=== PATIENT | female | born 1985 | race Caucasian/White ===

== ENCOUNTER 2023-08-17 11:32 | Outpatient (CLI) | payer OTHER, SELFPAY ==
[2023-08-17 11:51] LABS: Basophils Absolute Auto 0.06 K/mm3 (0.00-0.10); Basophils Percent Auto 0.8 % (0.0-1.0); Eosinophils Absolute Auto 0.47 K/mm3 (0.02-0.50); Hematocrit 41.6 % (35.0-49.0); Hemoglobin 14.4 g/dL (12.0-15.0); Immature Granulocyte Absolute 0.02 K/mm3 (0.00-0.00); Immature Granulocyte Percent A 0.3 % (0.0-0.0); Lymphocytes Absolute Auto 2.63 K/mm3 (1.10-4.50); Lymphocytes Percent Auto 33.5 % (18.0-42.0); Mean Corpuscular HGB Conc 34.6 g/dL (32.0-36.0); Mean Corpuscular Volume 89.7 fL (78.0-102.0); Mean Platelet Volume 9.7 fl (9.2-11.8); Monocytes Absolute Auto 0.33 K/mm3 (0.10-0.90); Monocytes Percent Auto 4.2 % (2.0-11.0); Neutrophils Absolute Auto 4.3 K/mm3 (1.7-7.2); Neutrophils Percent Auto 55.2 % (50.0-70.0); Platelet Count Result 252 K/mm3 (150-420); Red Blood Count 4.64 M/mm3 (4.20-5.40); Red Cell Distribution Width 12.1 % (11.6-14.4); White Blood Count 7.8 K/mm3 (4.8-10.8)
[2023-08-17 13:04] LABS: Alanine Aminotransferase 24 U/L (14-59); Albumin Level 3.8 g/dL (3.4-5.0); Alkaline Phosphatase 56 U/L (46-116); Anion Gap 9 mmol/L (8-16); Aspartate Amino Transferase 18 U/L (15-37); Bilirubin,Total 0.4 mg/dL (0.00-1.00); Blood Urea Nitrogen 5 mg/dL (7-18); Calcium 8.6 mg/dL (8.5-10.1); Carbon Dioxide 30 mmol/L (21-32); Chloride 102 mmol/L (98-108); Estimated Glomerular Filt Rate > 60; Free T4 Free Thyroxine 0.89 ng/dL (0.76-1.46); Glucose 95 mg/dL (70-99); Iron 84 ug/dL (50-170); Osmolality Calculated 289 mOsm/kg (285-295); Percent Iron Saturation 28 % (12-57); Potassium 4.4 mmol/L (3.5-5.1); Sodium 141 mmol/L (136-145); Thyroid Stimulating Hormone 1.92 uIU/mL (0.36-3.74); Total Protein 6.8 g/dL (6.4-8.2); Vitamin B12 578 pg/mL (193-986)
[2023-08-17 13:21] LABS: Beta HCG Quantitative < 1.00 mIU/mL (0-6)
[2023-08-20 13:14] LABS: Vitamin D 25 Hydroxy 35 ng/mL (30-100)
[2023-08-21 07:48] LABS: Total Triiodothyronine (T3) 94.5 ng/dL (76-181)
== END 2023-08-17 11:33 | disposition home or self-care (01) ==
LOC: CHSLAB 11:34
PROVIDERS: PCP Nurse Practitioner Family; Visit Provider Nurse Practitioner Family
DX: R11.0 Nausea (principal); I10 Essential (primary) hypertension; D50.9 Iron deficiency anemia, unspecified; E53.8 Deficiency of other specified B group vitamins; E03.9 Hypothyroidism, unspecified; Z79.899 Other long term (current) drug therapy
CPT/HCPCS: 36415; 80053; 82306; 82607; 83540; 83550; 84439; 84443; 84480; 84702; 85025

== ENCOUNTER 2024-06-10 07:40 | Outpatient (CLI) | payer OTHER, SELFPAY ==
--- NOTE | ~2024-06-10 | MR_ITS ---
EXAMINATION: MR brain/brain stem wo con DATE: 06/10/2024 08:26 INDICATION: Seizure activity with loss of consciousness 4 weeks prior TECHNIQUE: Magnetic resonance imaging (MRI) of the brain and brainstem was performed without intraven ous contrast. Sequences included sagittal and axial T1-weighted SE, axial diffusion-weighted FS SE, a xial T2*-weighted GRE, axial T2-weighted FLAIR Propeller, axial T2-weighted Propeller, coronal T2-nichole ghted FLAIR, and coronal T1-weighted 3D FSPGR. Apparent diffusion coefficient (ADC) maps were created . . COMPARISON: None. FINDINGS: There are no areas of restricted diffusion to suggest acute infarction. No intracranial hemorrhage or abnormal intracranial mass lesion. There are 7 scattered foci of nonspecific increased T2-weighted s ignal intensity in the bilateral frontal lobe cerebral white matter, 3 on the right and 4 on the left including a significantly larger lesion along the anterior horn of the left lateral ventricle. There are no intraparenchymal signal abnormalities seen on the other pulse sequences. Bilateral hippocampi appear normal and symmetric. No evident sinclair matter heterotopias or other developmental neuronal luis rational abnormalities. The ventricles are symmetric and normal in size. There are no abnormal extra- axial fluid collections. Flow voids are seen in the cerebral arteries on the T2-weighted sequences co nsistent with their expected patency. Visualized orbits and soft tissues are unremarkable. There is p rominent mucosal thickening the bilateral maxillary sinuses with additional mild mucosal thickening i n the left frontal sinus and moderate mucosal thickening the bilateral ethmoid sinuses. IMPRESSION: 1. 7 scattered foci of nonspecific white matter T2 hyperintensity which are more numerous than expect ed for age with a significantly larger lesion also atypical for age along the anterior horn of the le ft lateral ventricle. This raises some suspicion for demyelinating disease such as multiple sclerosis . The differential diagnosis would also include premature chronic small vessel ischemic disease (marciano cially if the patient has cardiovascular risk factors), drug abuse, vasculitis, or reactive astrocyto sis (gliosis) secondary to nonspecific etiology. 3. Prominent sinus disease. Reviewed, dictated and finalized at location A. STRATE JUDGE IMPRESSION: 1. 7 scattered foci of nonspecific white matter T2 hyperintensity which are mor e numerous than expected for age with a significantly larger lesion also atypic al for age along the anterior horn of the left lateral ventricle. This raises s ome suspicion for demyelinating disease such as multiple sclerosis. The differe ntial diagnosis would also include premature chronic small vessel ischemic dise ase (especially if the patient has cardiovascular risk factors), drug abuse, va sculitis, or reactive astrocytosis (gliosis) secondary to nonspecific etiology. 3. Prominent sinus disease.
== END 2024-06-10 07:41 | disposition home or self-care (01) ==
LOC: CHSIMG 07:46
PROVIDERS: PCP Nurse Practitioner Family; Visit Provider Nurse Practitioner Family
DX: R56.9 Unspecified convulsions (principal); R93.0 Abnormal findings on diagnostic imaging of skull and head, not elsewhere classified
CPT/HCPCS: 70551

== ENCOUNTER 2024-09-21 11:35 | Outpatient (CLI) | payer OTHER, SELFPAY ==
[2024-09-21 11:47] LABS: Basophils Absolute Auto 0.07 K/mm3 (0.00-0.10); Basophils Percent Auto 0.7 % (0.0-1.0); Eosinophils Absolute Auto 0.56 K/mm3 (0.02-0.50); Eosinophils Percent Auto 5.5 % (1.0-6.0); Hematocrit 43.2 % (35.0-49.0); Immature Granulocyte Absolute 0.02 K/mm3 (0.00-0.00); Immature Granulocyte Percent A 0.2 % (0.0-0.0); Lymphocytes Absolute Auto 2.53 K/mm3 (1.10-4.50); Mean Corpuscular HGB Conc 34.7 g/dL (32-36); Mean Corpuscular Hemoglobin 30.8 pg (27.0-31.0); Mean Corpuscular Volume 88.7 fL (78.0-102.0); Mean Platelet Volume 8.9 fl (9.2-11.8); Monocytes Absolute Auto 0.54 K/mm3 (0.10-0.90); Monocytes Percent Auto 5.3 % (2.0-11.0); Neutrophils Absolute Auto 6.42 K/mm3 (1.70-7.20); Neutrophils Percent Auto 63.3 % (50.0-70.0); Platelet Count Result 274 K/mm3 (150-420); Red Blood Count 4.87 M/mm3 (4.20-5.40); Red Cell Distribution Width 12.4 % (11.6-14.4); White Blood Count 10.1 K/mm3 (4.8-10.8)
[2024-09-21 12:19] LABS: Hemoglobin A1C 6.3 % (<5.7)
--- OUTSIDE RECORDS SUMMARY | 2024-09-21 12:24 | XMS_ITS | Continuity of Care Document ---
Author Organization [facility] Address [address] [place] [address] Phone Care Team Providers Care Panelboard Operator Name Role Phone Adalid Madrigal MD Unavailable Unavaila ble Allergies, Adverse Reactions, Alerts Substance Reaction Status Criticality carbamazepine Active No Information acetazolamide Active No Information Sulfa (Sulfonamide Antibiotics) rash, hives, vomiting Active No Information Medications Medication Instructions Dosage Effective Dates (start - stop) Status Comments tramadol 50 mg tablet take 1 tablet by oral route 3 times every day 50 MG - Active gabapentin 300 mg capsule take 1 capsule by oral route 3 times every day 300 MG - Active tizanidine 4 mg tablet take 1 tablet by oral route every 3 hours as needed not to exceed 3 doses in 24 hours 4 MG - Active levothyroxine 112 mcg tablet take 1 tablet by oral route every day 112 MCG - Active atorvastatin 40 mg tablet take 1 tablet by oral route every day 40 MG - Active esomeprazole magnesium 40 mg capsule,delayed release take 1 capsule by oral route every day 40 MG - Active duloxetine 60 mg capsule,delayed release take 1 capsule by oral route every day 60 MG - Active duloxetine 30 mg capsule,delayed release take 1 capsule by oral route every day 30 MG - Active HUMALOG (unknown strength) Not Available - Active pramipexole 0.5 mg tablet take 1 tablet by oral route every day 0.5 MG - Active mirtazapine 30 mg tablet take 1 tablet by oral route every day before bedtime 30 MG - Active hydroxyzine HCl 50 mg tablet take 1 tablet by oral route every day 50 MG - Active zolpidem 10 mg tablet take 1 tablet by oral route every day as needed 10 MG - Active ondansetron HCl 8 mg tablet take 1 tablet by oral route every 12 hours for 2 days 8 MG - Active loratadine 10 mg tablet take 1 tablet by oral route every day 10 MG - Active zinc 50 mg tablet - Active B-12 COMPLIANCE (unknown strength) Not Available - Active Vitamin C 500 mg tablet - Active potassium gluconate 595 mg (99 mg) tablet - Active magnesium oxide 500 mg tablet - Active MULTIVITAMINS (unknown strength) Not Available - Active Stool Softener 100 mg capsule - Active Procedures Procedure Date POSTOP FOLLOW-UP VISIT PT Eval Moderate Complexity THERAPEUTIC ACTIVITIES Doc meds verified w/pt or reviewed W/pt Cur funct assess & care pln PAIN ASSESS DOCUMENTED-POSITIVE & FOLLOW -UP PLAN D CARPAL TUNNEL RELEASE, OPEN OFFICE/OUTPATIENT VISIT, EST XRAY HAND, MIN 3 VIEWS XRAY WRIST, 1-2 VIEWS OFFICE/OUTPATIENT VISIT, NEW XRAY WRIST, 1-2 VIEWS XRAY FOOT, 3+ VIEWS OFFICE/OUTPATIENT VISIT, NEW OFFICE/OUTPATIENT VISIT, NEW X-RAY EXAM OF LOWER SPINE Advance Directives Directive Yes / No Effective Date File Name No Information Encounters Encounter Description Practice Location Reason(s) For Visit Diagnoses Date Provider Providers Copied on Encounter [facility], [address] [place] [address], [address], [place] tel:[phone] No Location No Information 0 Kaitlin Cordoba. [address], [place], [id number], [place]. tel:[phone] [facility], [address] [place], [address], [place] tel:[phone] ANDRIA Lemos post-op bilateral wrist (chief complaint) Body mass index (BMI) 31.0-31.9, adultEncounter for surgical aftercare following surgery of nervous system 0 Kaitlin Cordoba. [address], [place], [id number], [place]. tel:[phone] Referring Provider: Smooth Dunn, [address], [place], [address] . tel:[phone] [facility], [address] [place] [address], [address], [place] tel:[phone] [facility] Carpal tunnel syndrome, bilateral upper limbs 0 Kaitlin Cordoba. [address], [place], [id number], [place]. tel:[phone] [facility], [address] [place] [address], [address], [place] tel:[phone] [facility] Therapy-P owell Bilateral wrist painBilateral stiffness of wrist jointsWeakness of both hands 0 Umberto Hatfield. [address], [address], [place], [place], [id number], [place]. tel:[phone] Referring Provider: Adalid Madrigal , [address] [place] [address], [address] . tel:[phone] [facility], [address] [place] [address], [address], [place] tel:[phone] [facility] Carpal tunnel syndrome, bilateral upper limbs 0 Garth Lin. [address], [address], [place], [place], [id number], [place]. tel:[phone] [facility], [address] [place] [address], [address], [place] tel:[phone] [facility] No Information 0 Kaitlin Cordoba. [address], [place], [id number], [place]. tel:[phone] Referring Provider: Xander Florentino E [facility] [address], [place], [address] . tel:[phone] OFFICE/OUTPA TIENT VISIT, [facility], [address] [place] [address], [address], [place] tel:[phone] [facility] Lemos hand pain equally on both sides (chief complaint) Bilateral carpal tunnel syndrome Mar- 0 Kaitlin Cordoba. [address], [place], [id number], [place]. tel:[phone] Referring Provider: Xander Florentino E [facility] [address] [place], [address] . tel:[phone] OFFICE/OUTPA TIENT VISIT, [facility], [address] [place] [address], [facility], [place] tel:[phone] [facility] Lemos right hand pain (chief complaint) Body mass index (BMI) 31.0-31.9, adultContusion of right hand, initial encounterBilate ral carpal tunnel syndrome 0 Kaitlin Cordoba. [address] [place] [address], [id number], [place]. tel:[phone] Referring Provider: Xander Florentino E [facility] [address], [place], [address] . tel:[phone] OFFICE/OUTPA TIENT VISIT, [facility], [address] [place] [address], [address], [place] tel:[phone] [facility] Lemos right foot pain (chief complaint) Body mass index (BMI) 38.0-38.9, adultRight foot sprain, initial encounter 7 No Information Referring Provider: Xander Florentino E [facility] [address], [place], [address] . tel:[phone] OFFICE/OUTPA TIENT VISIT, [facility], [address] [place] [address], [address], [place] tel:[phone] [facility] Sean Whiting lumbar spine (chief complaint) No Information 3 Ambrocio Jennings. [address] [facility], [employer] [place], [id number], [place]. tel:[phone] Referring Provider: Xander Florentino [address], [place], [address] . tel:[phone] Family History Family Member Type Diagnosis Age At Onset Problem (finding) Family history of Diabe stefanie mellitus Problem (finding) Family history of strok e Problem (finding) Family history of Heart disease Problem (finding) Family history of Cance r Payers Payer name Insurance type Covered constitution party ID Abelardo doran(s) [employer] [facility] CI [id number] Social History Type Description Quantity Date Captured Comments Sex Female Smoking Status No Information Chief Complaint And Reason For Visit No Information Reason For Referral Reason For Referral No Information Plan Of Treatment Date Type Action Status Goal Lifestyle education regardin g diet completed Goal Lifestyle education regardin g diet completed Goal Lifestyle education regardin g diet completed History Of Present Illness Encounter Date Complaint History Of Prese nt Illness post-op bilateral wrist Activity level is: without assistance. Work status is: light work/activity. Status is: improving. Pain level is: 4/10. Pain frequency: occasional. Pain medications taken. Response: fair. Medication frequency: as needed. WB status: partial. Wound healing. No calf tenderness. No fever/chills. No rehabilitation. No nausea/vomiting. Swelling. Home exercise. Not using assistive device. Other: Well healed incision. hand pain equally on both sides Ms Cortés is a 34 year old female who complains of hand pain equally on both sides. She presents with pain on the right and left side equally. The symptoms occur intermittently. The pain is described as discomforting. She rates her current pain as 0/10. The symptoms are aggravated by daily activities. In addition to hand pain equally on both sides the patient is also experiencing numbness. right hand pain Ms Cortés is a 4 3 year old female who complains of right hand pain. She presents with pain on the right side. Kushal states that the symptoms began as the result of a fall. Patient states she fell and injured her hand 2 weeks ago in the shower. The symptoms occur constantly. The pain is described as sharp, throbbing and burning. She rates her current pain as 7/10. The symptoms are aggravated by daily activities. In addition to right hand pain the patient is also experiencing tingling. right foot pain Kushal Cortés is a 31 year old female. She presents with pain on the right side. She states that the symptoms have been acute traumatic and began on 12/16/2016. Kushal states that the symptoms began as the result of a fall. Patient states her injury occurred when she fell in her bathroom at home. The symptoms occur constantly. The pain is described as aching and sharp. She rates her worst pain as 10/10. She rates her current pain as 5/10. The symptoms are aggravated by walking. Kushal states that the symptoms are relieved by rest. Patient states she was seen by Dr. Smooth Dunn who took X rays and referred her here today. Patient does not have those X rays with her today. Functional Status Date Functional Assessmen t No Information Instructions Date Instruction Additional Infor mation Discussed post op care/precautio ns Advance activity as tolerated Lifestyle education regarding di et Related to Body mass index [BMI] 31.0-31.9, adult Giving encouragement to exercise Related to Body mass index [BMI] 31.0-31.9, adult Lifestyle education regarding di et Related to Body mass index (BMI) 31.0-31.9, adult Lifestyle education regarding di et Related to Body mass index (BMI) 38.0-38.9, adult Assessments Type Assessment Date No Information Patient Care Teams Name Effective Dates (start - stop) Status Members No Information
--- OUTSIDE RECORDS SUMMARY | 2024-09-21 12:24 | XMS_ITS | Continuity of Care Document ---
Author Organization [facility] Address [address] [place] [address] Phone Care Team Providers Care Brush Painter Name Role Phone Kai Guerrero MD Unavailable Unavailable Procedures Procedure Date Needle Electromyography,each Extr;Comp, 5 Or More Nerve Conduction Studies;3-4 Studies Jan Advance Directives Directive Yes / No Effective Date File Name No Information Encounters Encounter Description Practice Location Reason(s) For Visit Diagnoses Date Provider Providers Copied on Encounter [facility], [address], [place], [id number], [place] tel:[phone] [facility] No Information Yolanda Yan. [address] [place] [address], [id number], [place]. tel:[phone] Referring Provider: Floyd [place], [address], [address] . tel:[phone] Family History Family Member Type Diagnosis Age At Onset No Information Payers Payer name Insurance type Covered alliance party ID Authoriza tion(s) [facility] Umr CI [id number] [employer] Medicaid [place] [id number] Social History Type Description Quantity Date Captured Comments Sex Female Smoking Status No Information Chief Complaint And Reason For Visit No Information Reason For Referral Reason For Referral No Information History Of Present Illness Encounter Date Complaint History Of Prese nt Illness No Information Functional Status Date Functional Assessmen t No Information Instructions Date Instruction Additional Infor mation No Information Assessments Type Assessment Date No Information Patient Care Teams Name Effective Dates (start - stop) Status Members No Information
--- OUTSIDE RECORDS SUMMARY | 2024-09-21 12:24 | XMS_ITS | Referral Summary ---
Author Organization [facility] [place] [address] [place] [address] Care Team Providers Care Manager Of Human Resources Name Role Phone Mora Saldana NP Primary Care Provider [phone] Encounters Date Type Department Care Team Description 08/29/2024 10:36 AM CDT - 08/29/2024 11:59 PM CDT Hospital Encounter [facility] [address] [place] [address] Valentino Aggarwal MT Discharge Disposition: Discharge to home or self care 08/28/2024 9:25 AM CDT - 08/28/2024 11:59 PM CDT Hospital Encounter [facility] [address] [place] [id number] Marlin Pack CPhT Witnessed seizure-like activity (HCC) Discharge Disposition: Discharge to home or self care 08/15/2024 2:30 PM TRUCK SERVICE MANAGER [facility] [address] [place] [address] Outpatient Health 4th Floor [address] [place] [address] Maggy Alvarez MD Witnessed seizure-like activity (HCC) (Primary Dx) 07/20/2024 Telephone [facility] [address] [place] [address] 4th Floor [address] [place] [address] Juliet Prescott, JAYLYN 07/05/2024 Telephone [facility] Scheduling [address] [place] [address] Bettye Pennington from Last 3 Months Allergies Active Allergy Reactions Criticality Noted Date Comments Morphine Hives Medium 05/24/2023 Penicillin V Hives Medium 05/24/2023 Sulfa (Sulfonamide Antibiotics) Hives Medium 05/14 Medications albuterol HFA (PROVENTIL HFA,VENTOLIN HFA,PROAIR HFA) 90 mcg/actuation inhaler Inhale 2 puffs 2 (two) times a day 08/15/2024 Active hydrOXYzine (ATARAX) 25 mg tablet Take 1 tablet (25 mg total) by mouth every 8 (eight) hours as needed (anxiety) 07/10/2024 Active prazosin (MINIPRESS) 2 mg capsule Take 1 capsule (2 mg total) by mouth daily 08/10/2024 Active QUEtiapine (SEROquel) 50 mg tablet Take 1 tablet (50 mg total) by mouth nightly Active rosuvastatin (CRESTOR) 10 mg tablet Take 1 tablet (10 mg total) by mouth nightly Active SUMAtriptan (IMITREX) 25 mg tablet Take 1 tablet (25 mg total) by mouth 2 (two) times a day as needed Active tiZANidine (ZANAFLEX) 2 mg tablet Take 1 tablet (2 mg total) by mouth every 8 (eight) hours as needed Active propranoloL (INDERAL) 40 mg tablet Take 1 tablet (40 mg total) by mouth 2 (two) times a day Active pantoprazole DR (PROTONIX) 40 mg EC tablet Take 1 tablet (40 mg total) by mouth daily Active pramipexole (MIRAPEX) 0.125 mg tablet Take 1 tablet (0.125 mg total) by mouth nightly Active gabapentin (NEURONTIN) 300 mg capsule Take 1 capsule (300 mg total) by mouth 3 (three) times a day Active Active Problems No known active problems Social History Tobacco Use Types Packs/Day Years Used Date Smoking Tobacco: Every Day Cigarettes Smokeless Tobacco: Never Tobacco Cessation:Ready to Q uit: No; Counseling Given: Yes Hunger Vital Sign Answer Date Recorded Within the past 12 months, y ou worried that your food would run out before you got the money to buy more. Never true 08/16/19 25 Within the past 12 months, t he food you bought just didn't last and you didn't have money to get more. Never true 08/15/2024 Comments Unknown Sex and Gender Information Value Date Recorded Sex Assigned at Not on file Legal Sex Female 9:57 AM CDT Gender Identity Not on file Sexual Orientation Not on file Last Filed Vital Signs Vital Sign Reading Time Taken Comments Blood Pressure 113/76 08/15/2024 2:22 PM TRUCK SERVICE MANAGER Pulse 69 08/15/2024 2:22 PM TRUCK SERVICE MANAGER Temperature 37.2 C (99 F) 08/15/2024 2:22 PM TRUCK SERVICE MANAGER Respiratory Rate 16 08/15/2024 2:22 PM TRUCK SERVICE MANAGER Oxygen Saturation - - Inhaled Oxygen Concentration - - Weight 104.3 kg (230 lb) 08/15/2024 2:22 PM TRUCK SERVICE MANAGER Height 165.1 cm (5' 5 ) 08/15/2024 2:22 PM TRUCK SERVICE MANAGER Body Mass Index 38.27 08/15/2024 2:22 PM TRUCK SERVICE MANAGER Plan of Treatment Not on file Procedures Procedure Name Priority Date/Time Associated Diagnosis Comments AMBULATORY EEG Routine 08/29/2024 5:15 PM CDT Witnessed seizure-like activity (HCC) from Last 3 Months Results * Ambulatory EEG -[facility] (08/29/2024 5:15 PM CDT) Anatomical Region Laterality Modality EEG Narrative 08/29/2024 5:15 PM CDT Ambulatory EEG Report Patient Name: Kusahl Cortés [facility] Medical Record Number (MRN): [id number] [facility] Record: No Soarian MRN Date of (): 1985 EEG Date: 08/28/2024 Ordering Provider: Maggy Alvarez MD CC: Mora Saldana Start Time: 08/28/2024 10:33:55 AM End Time: 08/29/2024 11:27:15 AM Introduction: Ms. Cortés is a 39 y.o. female with a history of PTSD, depression, peripheral neuropathy 2/2 TDM (diet controlled), morbid obesity s/p gastric bypass, DDD, and scoliosis, who presented with headaches and seizure like episodes. EEG was performed to evaluate for seizures. This is a 24 channel EEG recording acquired on a [employer] digital ambulatory EEG acquisition system. Scalp electrodes were placed with collodion according to the international 10-20 System. The analog EEG was filtered from 1-70 Hz and digitally sampled at 200 Hz. The record was then reformatted for review in bipolar and referential montages. A patient diary and push-button event system was utilized to record patient events as needed. EEG Description: The awake background included an 11 Hz posterior rhythm which attenuated with eye opening and activity. During drowsiness, identified by ocular signs and alpha attenuation, there was intermittent, diffuse, asynchronous theta activity admixed with 2-4 Hz polymorphic frontotemporal delta activity. As the record progressed, stage II sleep was identified by vertex waves, sleep spindles and K-complexes. Hyperventilation and photic strobe stimulation were not performed. There were no focal, lateralized or epileptiform abnormalities. No events were reported by the patient. Interpretation: This is a normal awake, drowsy, and asleep ambulatory EEG. No events were reported by the patient. By signing this report, the attending Electroencephalographer certifies that he/she personally reviewed the electrodiagnostics study and has edited this report to fully conform with his/her intent. Signing Attending: Ashvin Spangler III, MD Maggy Alvarez MD NEUROLOGY ORDERABLES Final Result from Last 3 Months Insurance [facility] [place] Care Teams Manager Of Human Resources Relationship Specialty Start Date End Date Mora Saldana NP [address] [place], [place] [id number] PCP - General Nurse Practitioner 08/15/24
--- OUTSIDE RECORDS SUMMARY | 2024-09-21 12:24 | XMS_ITS | Clinical Summary ---
Author Organization [facility] Address [facility] [place] [address] Care Team Providers Care Tire Molder Name Role Phone Mora Saldana NP Primary Care Provider [phone] Allergies Active Allergy Reactions Criticality Noted Date [...] Active Active Problems No known active problems Encounters Date Type Department Care Team Description 08/29/2024 10:36 AM CDT - 08/29/2024 11:59 PM CDT Hospital Encounter [facility] [address] [place] [address] Valentino Aggarwal MT Discharge Disposition: Discharge to home or self care 08/28/2024 9:25 AM CDT - 08/28/2024 11:59 PM CDT Hospital Encounter [facility] [address] [place] [address] Marlin Pack CPhT Witnessed seizure-like activity (HCC) Discharge Disposition: Discharge to home or self care 08/15/2024 2:30 PM [facility] [address] [place] [address] Outpatient Health 4th Floor [address] [place] [id number] Maggy Alvarez MD Witnessed seizure-like activity (HCC) (Primary Dx) 07/20/2024 Telephone [facility] [address] [place] [address] Outpatient Health 4th Floor [address] [place] [id number] Juliet Prescott RN 07/05/2024 Telephone [facility] Scheduling [facility] [place] [address] Bettye Pennington from Last 3 Months Social History Tobacco Use Types Packs/Day Years [...] on file Sexual Orientation Not on file Obstetrics History Last Filed Vital Signs Vital Sign Reading Time Taken Comments Blood Pressure 113/76 08/15/2024 2:22 PM AXLE TURNER Pulse 69 08/15/2024 2:22 PM AXLE TURNER Temperature 37.2 C (99 F) 08/15/2024 2:22 PM AXLE TURNER Respiratory Rate 16 08/15/2024 2:22 PM AXLE TURNER Oxygen Saturation - - Inhaled Oxygen Concentration - - Weight 104.3 kg (230 lb) 08/15/2024 2:22 PM AXLE TURNER Height 165.1 cm (5' 5 ) 08/15/2024 2:22 PM AXLE TURNER Body Mass Index 38.27 08/15/2024 2:22 PM AXLE TURNER Plan of Treatment Health Maintenance Due Date Last Done Comments Cervical Cancer Screening 1986 Depression Screening 1986 Hepatitis C Screening 1986 DTaP/Tdap/Td Vaccine (1 - Tdap) 1997 Varicella Vaccines (1 of 2 - 13+ 2-dose series) 1999 Hepatitis B Screening 2004 Regular Well Visit/Exam 18-64 2004 Influenza Vaccine Completed 02/12/2024 Pneumococcal vaccine <65 Completed 02/12/2024 HPV Vaccines Aged Out No longer eligi ble based on patient's age to complete this topic Procedures Procedure Name Priority Date/Time Associated Diagnosis Comments AMBULATORY EEG Routine 08/29/2024 5:15 PM CDT Witnessed seizure-like activity (HCC) from Last 3 Months Results * Ambulatory EEG -[facility] (08/29/2024 5:15 PM CDT) Anatomical Region Laterality Modality EEG Narrative 08/29/2024 5:15 PM CDT Ambulatory EEG Report Patient Name: Kushal Cortés [facility] Medical Record Number (MRN): [id number] [facility] Record: No Soarian MRN Date of (): [...] 24 channel EEG recording acquired on a [employer] digital ambulatory EEG acquisition system. Scalp electrodes [...] Final Result from Last 3 Months Insurance [employer] [facility] [employer] [facility] Care Teams Tire Molder Relationship Specialty Start Date End Date Mora Saldana NP [address] [place] [address] PCP - General Nurse Practitioner 08/15/24
--- OUTSIDE RECORDS SUMMARY | 2024-09-21 12:24 | XMS_ITS | Continuity of Care Document ---
Author Organization [facility] Address [address] [place] [address] Phone Care Team Providers Care Range Conservationist Name Role Phone Teto Whitaker MD Unavailable Unavailable Allergies, Adverse Reactions, Alerts Substance Reaction Status Criticality Sulfa (Sulfonamide Antibiotics) Active No Information Medications Medication Instructions Dosage Effective Dates (start - stop) Status Comments Bydureon 2 mg subcutaneous extended release suspension inject (2MG) by subcutaneous route every 7 days once - Active Novolog Flexpen 100 unit/mL subcutaneous inject by subcutaneous route per prescriber's instructions. Insulin dosing requires individualization. 0.00 - Active rizatriptan 10 mg tablet take 1 tablet by oral route 10 MG - Active zinc 50 mg tablet take 1 by Oral route every day - Active multivitamin capsule take 1 capsule by oral route every day - Active Contrave 8 mg-90 mg tablet,extended release take 2 tablet by oral route 2 times every day in the morning and evening 2.00 tablet - Active Vitamin C 1,000 mg tablet take 1 by Oral route every day 1 - Active Dexilant 60 mg capsule, delayed release take 1 capsule by oral route every day 60 MG - Active dicyclomine 10 mg capsule take 1 capsule by oral route 3 times every day 10 MG - Active fluoxetine 40 mg capsule take 1 capsule by oral route every day in the morning 40 MG - Active gabapentin 100 mg capsule take 3 capsule by oral route 4 times every day 300 MG - Active glyburide 5 mg tablet take 2 Tablet by oral route every day before breakfast 10 MG - Active hydroxyzine HCl 50 mg tablet take 1 tablet by oral route every evening 50 MG - Active Lantus 100 unit/mL subcutaneous solution inject 45 units by subcutaneous route once as per insulin protocol 45 units - Active levothyroxine 88 mcg tablet take 1 tablet by oral route every day 88 MCG - Active Claritin 10 mg tablet take 1 tablet by oral route every day 10 MG - Active losartan 50 mg-hydrochlorothiazide 12.5 mg tablet take 1 tablet by oral route every day 1.00 tablet - Active mirtazapine [address] 1 tablet by translingual route every day on top of the tongue where it will dissolve, then swallow in the evening prior to sleep 30 MG - Active simvastatin 20 mg tablet take 1 tablet by oral route every day in the evening 20 MG - Active Xopenex 1.25 mg/3 mL solution for nebulization inhale 3 milliliter by nebulization route every 8 hours - Active tizanidine 4 mg capsule take 1 capsule by oral route 4 times every day 4 MG - Active tramadol 50 mg tablet take 1 tablet by oral route every 8 hours as needed 50 MG - Active metronidazole 500 mg tablet take 1 tablet by oral route every 8 hours 500 MG - Active Procedures Procedure Date REFRACTION EYE EXAM & TREATMENT REFRACTION EYE EXAM, NEW PATIENT Advance Directives Directive Yes / No Effective Date File Name No Information Encounters Encounter Description Practice Location Reason(s) For Visit Diagnoses Date Provider Providers Copied on Encounter [facility] , [address] [place] [address], [facility], [phone] [facility] No Information Sherman Irene. [address] [place] [address], [facility], . tel: [phone] [facility] , [address] [place] [address], [facility], [phone] [facility] diabetes (chief complaint) Type 2 diabetes mellitus without complications 6 Sherman Irene. [address] [place] [address], [facility], . tel: [phone] [facility] , [address] [place] [address], [facility], tel:[phone] [facility] diabetes (chief complaint) Diabetes Mellitus, Adult Onset, Uncontrolled 5 Sherman Irene. [address] [facility], [place], [address], [place]. tel: [phone] Referring Provider: Smooth Dunn, [address] [facility], [place], [address]. tel:[phone] Family History Family Member Type Diagnosis Age At Onset Mother Problem (finding) degenerative disorder o f macula Mother Problem (finding) glaucoma Problem (finding) Family history of diabetes mellitus type 2 Payers Payer name Insurance type Covered libertarian ID Authoriza timontserrat(s) R CI [id number] Social History Type Description Quantity Date Captured Comments Sex Female Smoking Status No Information Chief Complaint And Reason For Visit No Information Reason For Referral Reason For Referral No Information History Of Present Illness Encounter Date Complaint History Of Prese nt Illness diabetes Patient presents for a diabetes evaluation in the right eye and left eye. Blood sugar uncontrolled per patient. Patient has had diabetes about 8 years;last A1C 7.? Patient is having problems seeing distance for the past 2 months. diabetes The 29 year old female presents for evaluation of diabetes in the right eye and left eye. Last A1C 7.16 May 2014. Uncontrolled diabetes per patient. C/o a decrease in vision at distance both eyes. C/o floaters OU, no flashes. My right eye has a cloud over it x 2 months. Patient has a h/o migraine headaches, no visual disturbances. Functional Status Date Functional Assessmen t No Information Instructions Date Instruction Additional Infor tony - Diabetes type II: no retinopathy, no signs of neovascularization noted. Discussed ocular and systemic benefits of blood sugar control. Do not recommend glasses change while blood sugar unstable. Patient requested copy of Rx to take with her. Again, informed patient not to fill this Rx. We will repeat MR @ no charge when sugar stabilizes. Related to Type 2 diabetes mellitus without complications - Return in 1 year sunita Whitaker M.D. for Diabetic Eval Related to Type 2 diabetes mellitus without complications - Diabetes type II: no retinopathy, no signs of neovascularization noted. Discussed ocular and systemic benefits of blood sugar control. Related to Diabetes Mellitus, Adult Onset, Uncontrolled - Return in 1 year sunita Whitaker M.D. for Diabetic Eval Related to Diabetes Mellitus, Adult Onset, Uncontrolled Assessments Type Assessment Date No Information Patient Care Teams Name Effective Dates (start - stop) Status Members No Information
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
[2024-09-21 12:45] LABS: Alanine Aminotransferase 23 U/L (14-59); Albumin Level 3.6 g/dL (3.4-5.0); Alkaline Phosphatase 61 U/L (46-116); Anion Gap 8 mmol/L (4-12); Aspartate Amino Transferase 18 U/L (15-37); Bilirubin,Total 0.4 mg/dL (0.00-1.00); Blood Urea Nitrogen 10 mg/dL (7-18); Calcium 8.9 mg/dL (8.5-10.1); Carbon Dioxide 27 mmol/L (21-32); Chloride 102 mmol/L (98-108); Estimated Glomerular Filt Rate > 60; Free T4 Free Thyroxine 0.93 ng/dL (0.76-1.46); Glucose 169 mg/dL (70-99); Iron 88 ug/dL (50-170); Magnesium 1.9 mg/dL (1.8-2.4); Osmolality Calculated 287 mOsm/kg (285-295); Potassium 4.7 mmol/L (3.5-5.1); Sodium 137 mmol/L (136-145); Thyroid Stimulating Hormone 1.76 uIU/mL (0.36-3.74); Vitamin B12 923 pg/mL (193-986)
[2024-09-22 07:29] LABS: Total Triiodothyronine (T3) 96 ng/dL (76-181)
[2024-09-22 08:03] LABS: Vitamin D 25 Hydroxy 25 ng/mL (30-100)
== END 2024-09-21 11:36 | disposition home or self-care (01) ==
LOC: CHSLAB 11:36
PROVIDERS: PCP Nurse Practitioner Family; Visit Provider Nurse Practitioner Family
DX: I10 Essential (primary) hypertension (principal); E11.9 Type 2 diabetes mellitus without complications; E53.8 Deficiency of other specified B group vitamins; Z79.899 Other long term (current) drug therapy; E03.9 Hypothyroidism, unspecified; D50.9 Iron deficiency anemia, unspecified; D64.9 Anemia, unspecified; R79.89 Other specified abnormal findings of blood chemistry
CPT/HCPCS: 36415; 80053; 82306; 82607; 83036; 83540; 83735; 84439; 84443; 84480; 85025